=== PATIENT | male | born 2000 | race African-American/Black ===

== ENCOUNTER 2020-03-12 03:13 | Emergency (ER) | payer MEDICAID ==
[~2020-03-12] VITALS: Ht 185.4 cm; Wt 102.3 kg
[2020-03-12 03:24] VITALS: TEMP 98.7
[2020-03-12 04:43] LABS: STREP SCREEN NEGATIVE
[2020-03-12] MEDS ORDERED: CEPHALEXIN500 M1 PO (05:30)
[2020-03-12 05:46] VITALS: BP 159/84; PULSE 91
== END 2020-03-12 05:47 | disposition home or self-care (01) ==
LOC: COL.ER 03:13
PROVIDERS: Emergency Medicine
DX: J02.9 Acute pharyngitis, unspecified (principal); R04.1 Hemorrhage from throat